=== PATIENT | female | born 1950 | race Caucasian/White ===

== ENCOUNTER → 2021-07-31 | Outpatient (CLI) | payer OTHER ==
--- NOTE | 2021-07-31 13:46 | CT ---
EXAMINATION TYPE: CT chest wo/w con DATE OF EXAM: 07/31/2021 COMPARISON: None HISTORY: SOB CT DLP: 1054.7 mGycm Automated exposure control for dose reduction was used. CONTRAST: CT scan of the chest is performed without and with IV Contrast, patient injected with 80cc mL of Isov ue 300. FINDINGS: LUNGS: The lungs show on axial image 27 a nodule and sagittal image 25 in the right lower lobe, indet erminate, 4 mm in size There is no pleural effusion or pneumothorax seen. The tracheobronchial tree is patent. MEDIASTINUM: There are no greater than 1 cm hilar or mediastinal lymph nodes. No pericardial effusi on is seen. Small prevascular node is present. Borderline enlargement of the pulmonary artery, corre late for pulmonary artery hypertension AORTA: No additional significant abnormality is seen. OTHER: Patient is post cholecystectomy. Liver shows low attenuation possibly due to hepatic steatosi s. IMPRESSION: Indeterminate pulmonary nodule, consider follow-up in 3-6 months. Correlate for possible pulmonary artery hypertension, restrictive lung disease. Postop change.
== END | disposition home or self-care (01) ==
LOC: RADCTMAIN 11:15
DX: R93.89 Abnormal findings on diagnostic imaging of other specified body structures (principal); R06.02 Shortness of breath
CPT/HCPCS: 82565; 84520; 71270; 36415; Q9967

== ENCOUNTER → 2022-04-17 | Outpatient (CLI) | payer OTHER ==
--- NOTE | 2022-04-17 14:40 | CT ---
EXAMINATION TYPE: CT chest wo con DATE OF EXAM: 04/17/2022 COMPARISON: HISTORY: DYSPNEA CT DLP: 527.4 mGycm. Automated Exposure Control for Dose Reduction was Utilized. TECHNIQUE: CT scan of the thorax is performed without IV contrast. FINDINGS: LUNGS: The lungs are grossly clear, there is no concerning parenchymal mass or nodule identified. T here is no pleural effusion or pneumothorax seen. The tracheobronchial tree is patent. There is a 4 mm nodule superior segment right lower lobe axial image 27. There is a 4 mm nodule right middle lobe axial image 27 patient measure 2 mm A vague 6 mm nodular density left lung base not seen with certainty. There is a 2 mm subpleural nodule superior segment right retrospect MEDIASTINUM: Lack of IV contrast is noted to limit evaluation for mediastinal and especially hilar ad enopathy. There are no definitive greater than 1 cm hilar or mediastinal lymph nodes. No cardiomega ly or pericardial effusion is seen. Coronary artery calcifications seen. Mild atherosclerotic change of the aorta. OTHER: Hypertrophic and degenerative changes of the spine. Post cholecystectomy clips noted. IMPRESSION: 1. There is a 4 mm right lower lobe pulmonary nodule stable. 2. There is interval growth of a right middle lobe nodule which previously measured 2 mm and now howard ures 4 mm. 3. There is a new 6 mm nodule left lower lobe. Recommend 6 month follow-up to assess stability.
== END | disposition home or self-care (01) ==
LOC: RADCTMAIN 14:05
PROVIDERS: ATTEND Internal Medicine Pulmonary Disease
DX: R91.8 Other nonspecific abnormal finding of lung field (principal)
CPT/HCPCS: 71250